=== PATIENT | male | born 1995 | race African-American/Black ===

== ENCOUNTER → 2016-11-22 | Outpatient (CLI) | payer BC ==
[~2016-11-22] MED LIST: AZITTAB PO; EPP3/2 IM; FLUT27.5 NAE; FLUT27.53; FLVHFA110 INH; HYDR5SYP11 PO; IBUP-103 PO; LEVO-371 PO; LISD40CA PO; MONT1TAB3 PO; OXYC-57 PO; PRED50TA PO
== END | disposition home or self-care (01) ==
LOC: C.RDSM 08:00
PROVIDERS: ATTEND Orthopaedic Surgery Sports Medicine
DX: R52 Pain, unspecified (principal)

== ENCOUNTER 2017-03-07 10:10 | Emergency (ER) | payer BC ==
[~2017-03-07] VITALS: Ht 180.3 cm; Wt 78.6 kg
[~2017-03-07 10:10] MED LIST changes: -AZITTAB PO; -FLUT27.53; -HYDR5SYP11 PO; -LEVO-371 PO; +LEVO5TAB2 PO; -PRED50TA PO
[2017-03-07 10:18] VITALS: TEMP 36.9; Ht 180.3 cm; Wt 78.6 kg
[2017-03-07] MEDS ORDERED: HYDROCODONE/HOMATROPINE SYRUP 5MG/1.5MG 5ML UDP PO STA (10:36)
[2017-03-07] MEDS ORDERED: ALBUT/IPRATROP 3MG/0.5MG NEB 3 ML VIAL INH STA (10:36)
--- NOTE | 2017-03-07 10:37 | EMERGENCY ROOM VISIT NOTE ---
History Report prepared by Negin: Laz Galdamez Under the Supervision of: Dr. Ben Oneil M.D. First contact with patient: 10:29 Chief Complaint: SORETHROAT Stated Complaint: SORETHROAT, TROUBLE BREATHING, WHEEZING, COUGH History of Present Illness The patient is a 21 year old male who presents to the Emergency Room with complaints of a persistent sore throat that started 3 days ago. He says that he initially thought it was an allergic reaction, so he took 2 doses of Benadryl a few days ago. The patient also complains of a runny nose and cough. He did have a bad sinus headache yesterday, but it is gone today. He has not seen anybody for his symptoms. The patient denies nausea, vomiting, neck pain, abdominal pain , body aches, or lymph node swelling. He did not get his flu shot. He has a history of asthma, and used his inhaler every 2 hours last night. The patient notes that he has not knowingly been around anyone who has had similar symptoms. Source of History: patient Onset: 3 days ago Position: throat Quality: other (sore) Timing: other (persistent) Associated Symptoms: + cough, + headache, No abdominal pain, No lymphadenopathy, No nausea, No neck pain, No vomiting Note: Associated symptoms: Runny nose. Denies body aches. Review of Systems See HPI for pertinent positives & negatives. A total of 10 systems reviewed and were otherwise negative. Past Medical & Surgical Medical Problems: (1) Asthma Surgical Problems: (1) No significant past surgical history Family History Patient reports no known family medical history. Social History Smoking Status: Never Smoker Alcohol Use: none Drug Use: none Marital Status: single Housing Status: lives with roommate Occupation Status: [employer] student Current/Historical Medications Scheduled Azithromycin (Zithromax Z-Malcolm), 1 PKT PO UD Epinephrine (Epipen 2-Malcolm), 1 APPL IM UD Fluticasone Propionate (Flovent Hfa), 2 PUFFS INH QAM Levocetirizine Dihydrochloride (Xyzal), 5 MG PO QAM Lisdexamfetamine Dimesylate (Vyvanse), 40 MG PO QAM Montelukast Sodium (Singulair), 10 MG PO QAM Prednisone (Prednisone), 50 MG PO DAILY Scheduled PRN Hydrocodone W/ Homatropine (Hycodan 5/1.5MG 5 Ml), 5-10 ML PO HS PRN for Cough Miscellaneous Medications Fluticasone Furoate (Flonase Sensimist) Allergies Coded Allergies: Celery (Unverified Allergy, Intermediate, ANAPHYLAXIS, 03/07/17) Kiwi (Unverified Allergy, Intermediate, ANAPHYLAXIS, 03/07/17) Pineapple (Unverified Allergy, Intermediate, ANAPHYLAXIS, 03/07/17) Shellfish Allergy (Unverified Allergy, Intermediate, THROAT SWELLS, ) Watermelon (Unverified Allergy, Intermediate, ANAPHYLAXIS, 03/07/17) Apple (Unverified Allergy, Mild, ITCH, 03/07/17) Carrot (Unverified Allergy, Mild, ITCH, 03/07/17) Lettuce (Unverified Allergy, Mild, ITCH, 03/07/17) Nut Tree (Unverified Allergy, Mild, ITCH, 03/07/17) [place] (Unverified Allergy, Mild, ITCH, 03/07/17) Pear (Unverified Allergy, Mild, ITCH, 03/07/17) Plums (Unverified Allergy, Mild, ITCH, 03/07/17) Soy Allergy (Unverified Allergy, Mild, ITCH, 03/07/17) [place] (Unverified Allergy, Mild, ITCH, 03/07/17) NO KNOWN DRUG ALLERGIES (Verified Allergy, Unknown, ., 03/07/17) Physical Exam Vital Signs Date Time Temp Pulse Resp B/P Pulse Ox O2 Delivery O2 Flow Rate FiO2 03/07/17 12:17 68 20 130/66 99 Room Air 03/07/17 10:20 97 Room Air 03/07/17 10:18 36.9 104 18 149/94 97 Room Air Physical Exam GENERAL: Patient is well appearing and in mild distress. HEENT: Bilateral rhinorrhea. Erythematous posterior pharynx with MAL2 tonsils, no exudate. NECK: No stridor, no adenopathy, no meningismus, trachea is midline. LUNGS: Wheezing throughout both lungs, crackles in right lower base. HEART: Regular rate and rhythm. No murmurs, rubs, gallops appreciated. ABDOMEN: Soft, nontender, bowel sounds positive, no masses appreciated, no peritonitis. BACK: No midline tenderness, no CVA tenderness EXTREMITIES: Normal motion all extremities, no cyanosis, no edema. NEUROLOGIC: Alert and oriented, no acute motor or sensory deficits, no focal weakness, cranial nerves grossly intact. SKIN: No rash, no jaundice, no diaphoresis. Medical Decision & Procedures ER Provider Diagnostic Interpretation: X ray results are stated below per my interpretation and the radiologist's interpretation. CHEST ONE VIEW PORTABLE HISTORY: cough, wheezing COMPARISON: Chest 11/13/2016. FINDINGS: The lungs are clear. Cardiac silhouette is normal in size. No pleural effusions. No pneumothorax. IMPRESSION: No acute process. Electronically signed by: Saul Thomas M.D. 03/07/2017 10:55 AM Dictated Date/Time: 03/07/2017 10:54 AM Laboratory Results Test 03/07/17 10:45 Influenza Type A Antigen Neg for Influ A (NEG) Influenza Type B Antigen Neg for Influ B (NEG) Laboratory results as reviewed by me. Medications Administered Medications (Trade) Dose Ordered Sig/Jesika Route Start Time Stop Time Status Last Admin Dose Admin Albuterol/ Ipratropium (Duoneb) 3 ml NOW STAT INH 03/07/17 10:36 03/07/17 10:37 DC 03/07/17 10:45 3 ML Hydrocodone Bit/ Homatropine Methylb (Hycodan Syrup) 5 ml NOW STAT PO 03/07/17 10:36 03/07/17 10:37 DC 03/07/17 10:44 5 ML Prednisone (PredniSONE TAB) 60 mg NOW STAT PO 03/07/17 10:36 03/07/17 10:37 DC 03/07/17 10:45 60 MG Azithromycin (Zithromax Tab) 500 mg NOW ONCE PO 03/07/17 12:15 03/07/17 12:16 DC 03/07/17 12:43 500 MG ED Course 1031: The patient was evaluated in room B12B. A complete history and physical exam was performed. 1036: Ordered Prednisone Tab 60 mg PO, Hycodan Syrup 5 ml PO, Duoneb 3 ml INH. 1204: Reevaluated the patient and he is feeling better and is comfortable with going home. Discussed results and discharge instructions: He verbalized understanding and agreement. He additionally noted that he has had Azithromycin previously and tolerated it well. The patient is ready for discharge. 1215: Ordered Zithromax Tab 500 mg PO, Ventolin Hfa Inhaler 2 puffs INH. Medical Decision Differential: Viral, Tonsillitis, Strep, [place], Peritonsillar Abscess, Retropharyngeal Abscess, Otitis, Pneumonia, Influenza, amongst other pathologies entertained. 21 yr old male arrives with complaint of cough, sore throat, body aches and increased wheezing. Using increased inhaler at home as well. Exam consistent with acute bronchitis though with some crackles RLL felt CXR reasonable which was normal. Flu and strep negative. Will treat asthmatic bronchitis but with exam add on zpack. Cough meds PRN, albuterol inhaler to go home with, and will do zpack and prednisone as outpatient. Stable and without evidence of abscess, meningitis, sepsis. Impression Primary Impression: Bronchitis, acute Additional Impression: Sore throat Scribe Attestation The scribe's documentation has been prepared under my direction and personally reviewed by me in its entirety. I confirm that the note above accurately reflects all work, treatment, procedures, and medical decision making performed by me. Departure Information Dispostion Home / Self-Care Prescriptions Prednisone (Prednisone) 50 Mg Tab 50 MG PO DAILY for 5 Days, #5 TAB Prov: Ben Oneil M.D. 03/07/17 Azithromycin (ZITHROMAX Z-MALCOLM) 250 Mg Tab 1 PKT PO UD, #1 PKT Prov: Ben Oneil M.D. 03/07/17 Hydrocodone W/ Homatropine (HYCODAN 5/1.5MG 5 ML) 1 Syp Syp 5-10 ML PO HS Y for Cough, #120 ML Prov: Ben Oneil M.D. 03/07/17 Referrals Primary Care Provider Patient Instructions ED Bronchitis Asthmatic, My [facility] Additional Instructions You have received a narcotic cough medication prescription. These medications may cause drowsiness and should not be used with other sedative medications. Do not drive, drink alcohol, perform dangerous activities, nor make important decisions after taking these medications. senior care use or inappropriate use may lead to addiction. Problem Qualifiers Primary Impression: Bronchitis, acute Bronchitis organism: unspecified organism Qualified Codes: J20.9 - Acute bronchitis, unspecified
--- NOTE | 2017-03-07 10:57 | DIAGNOSTIC IMAGING REPORT ---
CHEST ONE VIEW PORTABLE HISTORY: cough, wheezing COMPARISON: Chest 11/13/2016. FINDINGS: The lungs are clear. Cardiac silhouette is normal in size. No pleural effusions. No pneumothorax. IMPRESSION: No acute process. Electronically signed by: Saul Thomas M.D. 03/07/2017 10:55 AM Dictated Date/Time: 03/07/2017 10:54 AM
[2017-03-07] MEDS ORDERED: FLUT27.53 (10:59)
[2017-03-07] MEDS ORDERED: HYDR5SYP11 PO (12:07)
[2017-03-07] MEDS ORDERED: PRED50TA PO (12:07)
[2017-03-07] MEDS ORDERED: AZITTAB PO (12:07)
[2017-03-07] MEDS ORDERED: ALBUTEROL HFA 8 GM INHALER INH ONE (12:15)
[2017-03-07] MEDS ORDERED: AZITHROMYCIN 250 MG TAB PO ONE (12:15)
[2017-03-07 12:17] VITALS: BP 130/66; PULSE 68; O2SAT 99
== END 2017-03-07 12:35 | disposition home or self-care (01) ==
LOC: C.EDB 10:12
DX: J20.9 Acute bronchitis, unspecified (principal); J02.9 Acute pharyngitis, unspecified; R05 Cough; J45.909 Unspecified asthma, uncomplicated; Z79.899 Other long term (current) drug therapy